=== PATIENT | male | born 1945 | race Caucasian/White ===

== ENCOUNTER → 2017-12-25 | Outpatient (CLI) | payer MEDICARE, OTHER ==
[~2017-12-25] MED LIST: ADVAIR 100-501 EACH INH; ADVAIR HFA115 MCG/21 INH; ALDACTONE25 MG PO; ASPIR 8181 M1 PO; ASPIRIN OR; ASPIRIN81 M2 PO; CARVEDILOL25 MG PO; CIPRO500 MG PO; CITRATE OF MAG296 ML PO; COREG OR; COREG25 MG PO; COUMADIN; COUMADIN 5 MG TA5 M1 PO; COUMADIN7.5 MG PO; CRESTOR10 MG PO; CRESTOR5 MG PO; DOK PLUS TABLE1 EACH PO; FLAGYL500 MG PO; FLEXERIL PO; FUSION PLUS CA1 EACH PO; HYDROCODONE-AP1 EAC6 PO; LASIX 40 MG TAB40 M2 PO; LASIX 80 MG TAB80 MG PO; LISINOPRIL10 MG PO; LISINOPRIL5 MG PO; MEDROLDOSEPACK PO; MS CONTIN15 MG PO; NORCO 5-325 TA1 EACH PO; PEPCID20 MG PO; POTASSIUM20 PO; PRILOSEC 20 MG20 MG PO; PRILOSEC40 MG PO; RESTORIL15 MG PO; RESTORIL30 MG PO; SENOKOT-S1 TA1 PO; SYMBICORT160 MCG/4. INH; VANCOCIN 125 M125 M1 PO; ZETIA10 MG PO; ZOFRAN ODT4 MG DISSOLVE
== END ==
LOC: M.RAD 14:31
DX: M25.551 Pain in right hip (principal); M25.552 Pain in left hip